=== PATIENT | female | born 1985 | race Caucasian/White ===

== ENCOUNTER 2021-04-20 08:58 | Outpatient (CLI) | payer BC ==
[2021-04-20 11:18] LABS: Hemoglobin 11.8 g/dL (12.0-15.5); Mean Corpuscular HGB CONC 31.2 g/dL (32.0-36.0); Mean Corpuscular Volume 83.3 fl (81.6-98.3); Mean Platelet Volume 10.4 fl (7.4-10.4); Platelet Count 349 10x3/uL (150-450); RBC Distribution Width 13.7 % (11.5-14.5); Red Blood Cell (RBC) Count 4.54 10x6/uL (3.90-5.03)
[2021-04-20 11:26] LABS: PTT 28.9 sec (22.0-33.0); Prothrombin Time 10.6 sec (9.5-12.1)
[2021-04-20 11:36] LABS: Anion Gap 11 mmol/L (10-20); BUN (Urea Nitrogen) 11 mg/dL (7.0-18.7); Calc. Creatinine Clearance 0 mL/min (70-130); Calcium 9.3 mg/dL (7.8-10.44); Carbon Dioxide 25 mmol/L (22-29); Chloride 106 mmol/L (98-107); Glucose 100 mg/dL (70-105); Potassium 4.4 mmol/L (3.5-5.1); Sodium 138 mmol/L (136-145)
[2021-04-20 19:34] LABS: SARS-CoV-2 PCR by NAA Not Detected (NotDetected)
== END 2021-04-20 08:59 | disposition home or self-care (01) ==
LOC: LABBT 08:58
PROVIDERS: ATTEND Urology
DX: Z01.818 Encounter for other preprocedural examination (principal); Z20.822 Contact with and (suspected) exposure to COVID-19
CPT/HCPCS: 80048; 85027; 85610; 85730; 93005; 93010; U0003; U0005

== ENCOUNTER 2021-04-25 06:08 | Day surgery (SDC) | payer BC ==
[2021-04-16 15:07] VITALS: BMI 33.9
[2021-04-25] MEDS ORDERED: Fentanyl 100 MCG/2 ML VIAL ONE ×3 (09:21→13:30)
[2021-04-25] MEDS ORDERED: Midazolam HCl 2 mg/2 ml Vial ONE (09:30)
[2021-04-25] MEDS ORDERED: Levofloxacin 500 mg/D5W 100 ml Premix Bag ONE (09:38)
[2021-04-25] MEDS ORDERED: Lidocaine 1% PF 5 ML VIAL ONE (09:43)
[2021-04-25] MEDS ORDERED: PROPOFOL 200 MG/20 ML VIAL ONE (09:43)
[2021-04-25] MEDS ORDERED: Rocuronium Bromide 10 MG/ML (10ML VIAL) ONE (09:43)
[2021-04-25] MEDS ORDERED: Dexamethasone 20 MG/5 ML VIAL ONE (09:43)
[2021-04-25] MEDS ORDERED: ePHEDrine 50 MG/ML VIAL ONE (09:43)
[2021-04-25] MEDS ORDERED: Ondansetron PF 4 MG/2 ML Vial ONE (09:43)
[2021-04-25] MEDS ORDERED: Ketorolac Tromethamine 30 MG/ML VIAL ONE (09:43)
[2021-04-25] MEDS ORDERED: Iothalamate Meglumine 60% 50 ML VIAL FS ONE (10:02)
[2021-04-25] MEDS ORDERED: Promethazine HCl 25 MG/ML VIAL ONE (14:07)
[2021-04-25] MEDS ORDERED: Oxybutynin 5 MG TAB ONE (14:37)
[2021-04-25] MEDS ORDERED: Phenazopyridine HCl 100 MG TAB ONE (14:37)
== END 2021-04-25 15:03 | disposition home or self-care (01) ==
LOC: SDC 06:08
PROVIDERS: ATTEND Urology
PROC: 0TC48ZZ Extirpation of Matter from Left Kidney Pelvis, Via Natural or Artificial Opening Endoscopic (ICD-10-PCS; principal; 2021-04-25)
PROC: 0T778DZ Dilation of Left Ureter with Intraluminal Device, Via Natural or Artificial Opening Endoscopic (ICD-10-PCS; principal; 2021-04-25)
DX: N20.0 Calculus of kidney (principal); N28.89 Other specified disorders of kidney and ureter; I10 Essential (primary) hypertension; J45.20 Mild intermittent asthma, uncomplicated; Z79.899 Other long term (current) drug therapy
CPT/HCPCS: 74018; 74420; 82365; 88300; C1713; C2617; J1100; J1885; J1956; J2250; J2405; J2550; J2704; J3010; J3490; Q9961-U8

== ENCOUNTER 2021-09-17 11:09 | Outpatient (CLI) | payer BC | END 2021-09-17 11:10 | disposition home or self-care (01) | LOC: NM 11:09 | PROVIDERS: ATTEND Urology | DX: N20.0 Calculus of kidney (principal); N13.30 Unspecified hydronephrosis | CPT/HCPCS: 78708; A4641; A9562 ==

== ENCOUNTER 2021-10-02 10:06 | Outpatient (CLI) | payer BC | END 2021-10-02 10:07 | disposition home or self-care (01) | LOC: RAD 10:06 | PROVIDERS: ATTEND Urology | DX: N20.0 Calculus of kidney (principal) | CPT/HCPCS: 74018 ==

== ENCOUNTER 2022-02-04 07:33 | Outpatient (CLI) | payer BC ==
[2022-02-04] MEDS ORDERED: Iopamidol-370 76% 500 ML 1 ML ONE (10:34)
== END 2022-02-04 07:34 | disposition home or self-care (01) ==
LOC: BICCT 07:33
PROVIDERS: ATTEND Urology
DX: N13.2 Hydronephrosis with renal and ureteral calculous obstruction (principal); R10.9 Unspecified abdominal pain; N83.202 Unspecified ovarian cyst, left side; N83.201 Unspecified ovarian cyst, right side; K57.90 Diverticulosis of intestine, part unspecified, without perforation or abscess without bleeding
CPT/HCPCS: 74178; Q9967

== ENCOUNTER 2022-08-01 15:23 | Outpatient (CLI) | payer BC | END 2022-08-01 15:24 | disposition home or self-care (01) | LOC: BICRAD 15:23 | PROVIDERS: ATTEND Urology | DX: N20.0 Calculus of kidney (principal) | CPT/HCPCS: 74018 ==